=== PATIENT | female | born 1940 | race Caucasian/White ===

== ENCOUNTER 2018-09-18 06:06 | Day surgery (SDC) | payer OTHER, BC | END 2018-09-18 10:55 | disposition home or self-care (01) | LOC: FASU 06:06 ==

== ENCOUNTER 2020-08-27 08:55 | Inpatient (IN) | payer OTHER, BC ==
[2020-08-27 09:46] LABS: BASO % 0.8 % (0-2.0); EOS % 0.9 % (0-4.5); HEMATOCRIT 41.6 % (32.4-45.2); HEMOGLOBIN 13.7 GM/dl (10.7-15.3); LYMPH % 19.5 % (8-40); MCH 29.5 pg (25.7-33.7); MEAN CELL VOLUME 89.6 fl (80-96); MEAN PLT VOLUME 9.9 fl (7.5-11.1); MONO % 5.6 % (3.8-10.2); NEUT % 73.2 % (42.8-82.8); PLATELET COUNT 236 K/MM3 (134-434); RBC 4.64 M/mm3 (3.60-5.2); RDW 13.6 % (11.6-15.6); WHITE BLOOD COUNT 6.6 K/mm3 (4.0-10.8)
[2020-08-27] MEDS ORDERED: ONDANSETRON 4 MG/2 ML VIAL IVPUSH ONE (09:53)
[2020-08-27] MEDS ORDERED: ONDANSETRON 4 MG/2 ML VIAL ONE (09:53)
[2020-08-27] MEDS ORDERED: SODIUM CHLORIDE 0.9% 500 ML INFUS.BAG IV ONE ×2 (09:58→10:55)
[2020-08-27 10:09] LABS: ALBUMIN 4.3 g/dl (3.4-5.0); BILIRUBIN,TOTAL 1.2 mg/dl (0.2-1); CALCIUM 9.4 mg/dl (8.5-10); CREATININE 0.7 mg/dl (0.55-1.3); MAGNESIUM 1.8 mg/dL (1.8-2.4); PHOSPHOROUS 1.8 mg/dl (2.5-4.9); TOT PROT 7.2 g/dl (6.4-8.2)
[2020-08-27] MEDS ORDERED: NAPH,MB-DB/K PH,MBDB POWDER PACKET PO ONE (10:15)
[2020-08-27 10:45] LABS: EPITHELIAL CELLS FEW /hpf
[2020-08-27] MEDS ORDERED: METOCLOPRAMIDE HCL INJECTION 10 MG/2 ML VIAL IVPB ONE (11:13)
[2020-08-27 11:29] LABS: LIPASE 118 U/L (73-393)
[2020-08-27] MEDS ORDERED: METOCLOPRAMIDE HCL INJECTION 10 MG/2 ML VIAL ONE (11:31)
[2020-08-27 11:37] LABS: N-TERMINAL BNP 38.5 pg/ml (5-450)
[2020-08-27] MEDS ORDERED: PROCHLORPERAZINE INJECTION 10 MG/2 ML VIAL IVPB ONE (11:45)
[2020-08-27] MEDS: LOSARTAN POTASSIUM 25 MG TABLET PO SCH (13:37)
[2020-08-27 15:36] VITALS: BMI 22.4
[2020-08-27 16:42] LABS: PHOSPHOROUS 2.9 mg/dl (2.5-4.9)
[2020-08-28 07:41] LABS: BASO % 0.3 % (0-2.0); EOS % 0.5 % (0-4.5); HEMATOCRIT 34.6 % (32.4-45.2); HEMOGLOBIN 11.8 GM/dl (10.7-15.3); LYMPH % 11.9 % (8-40); MCH 30.1 pg (25.7-33.7); MEAN CELL VOLUME 88.4 fl (80-96); MEAN PLT VOLUME 9.7 fl (7.5-11.1); MONO % 6.5 % (3.8-10.2); NEUT % 80.8 % (42.8-82.8); PLATELET COUNT 216 K/MM3 (134-434); RBC 3.92 M/mm3 (3.60-5.2); RDW 13.1 % (11.6-15.6); WHITE BLOOD COUNT 9.8 K/mm3 (4.0-10.8)
[2020-08-28 07:49] LABS: ALBUMIN 3.6 g/dl (3.4-5.0); BILIRUBIN,TOTAL 0.9 mg/dl (0.2-1); CALCIUM 8.7 mg/dl (8.5-10); CREATININE 0.7 mg/dl (0.55-1.3); MAGNESIUM 1.8 mg/dL (1.8-2.4); PHOSPHOROUS 2.7 mg/dl (2.5-4.9)
[2020-08-28 08:47] LABS: EPITHELIAL CELLS FEW /hpf
[2020-08-28] MEDS: LOSARTAN POTASSIUM 25 MG TABLET PO SCH (09:22)
[2020-08-28] MEDS ORDERED: ONDANSETRON 4 MG/2 ML VIAL IVPUSH PRN (09:59)
[2020-08-28] MEDS: THIAMINE HCL 100 MG TABLET (FP) PO SCH (10:29)
[2020-08-28] MEDS: FOLIC ACID 1 MG TABLET (FP) PO SCH (10:29)
[2020-08-28] MEDS: SODIUM CHLORIDE 1,000 ML IV SCH (10:52)
[2020-08-28] MEDS: ASPIRIN COATED 81 MG TABLET.EC PO SCH (11:00)
[2020-08-28] MEDS: ENOXAPARIN NA (PORCINE) 40 MG/0.4 ML DISP.SYRIN SQ SCH (11:00)
[2020-08-28] MEDS: ATORVASTATIN CA 20 MG TABLET (FP) PO SCH (21:04)
[2020-08-29 08:04] LABS: BASO % 0.5 % (0-2.0); EOS % 0.8 % (0-4.5); HEMATOCRIT 34.7 % (32.4-45.2); HEMOGLOBIN 11.6 GM/dl (10.7-15.3); LYMPH % 15.3 % (8-40); MCHC 33.5 g/dl (32.0-36.0); MEAN CELL VOLUME 89.4 fl (80-96); MEAN PLT VOLUME 9.7 fl (7.5-11.1); MONO % 7.8 % (3.8-10.2); NEUT % 75.6 % (42.8-82.8); PLATELET COUNT 191 K/MM3 (134-434); RBC 3.88 M/mm3 (3.60-5.2); RDW 12.6 % (11.6-15.6); WHITE BLOOD COUNT 6.8 K/mm3 (4.0-10.8)
[2020-08-29 08:20] LABS: ALBUMIN 3.6 g/dl (3.4-5.0); BILIRUBIN,TOTAL 1.2 mg/dl (0.2-1); CALCIUM 8.9 mg/dl (8.5-10); CREATININE 0.7 mg/dl (0.55-1.3); MAGNESIUM 1.9 mg/dL (1.8-2.4); PHOSPHOROUS 2.8 mg/dl (2.5-4.9)
[2020-08-29 09:51] LABS: BILIRUBIN,DIRECT 0.2 mg/dL (0.0-0.2)
[2020-08-29] MEDS: ENOXAPARIN NA (PORCINE) 40 MG/0.4 ML DISP.SYRIN SQ SCH (09:54)
[2020-08-29] MEDS: LOSARTAN POTASSIUM 25 MG TABLET PO SCH (09:54)
[2020-08-29] MEDS: THIAMINE HCL 100 MG TABLET (FP) PO SCH (09:54)
[2020-08-29] MEDS: SODIUM CHLORIDE 1,000 ML IV SCH (09:54)
[2020-08-29] MEDS: FOLIC ACID 1 MG TABLET (FP) PO SCH (09:54)
[2020-08-29] MEDS: ASPIRIN COATED 81 MG TABLET.EC PO SCH (09:54)
[2020-08-29 10:15] LABS: CHOLESTEROL 142 mg/dl (50-200); HDL CHOLESTEROL 59 mg/dl (40-60); LDL CHOLESTEROL (ONLY DFH) 71 mg/dl (5-100); TRIGLYCERIDES 60 mg/dl (0-150)
[2020-08-29] MEDS: CHOLECALCIFEROL (VIT D3) 1,000 UNIT (25 MCG) TABLET PO SCH (15:40)
[2020-08-29] MEDS: ATORVASTATIN CA 20 MG TABLET (FP) PO SCH (21:04)
[2020-08-30 05:48] VITALS: TEMP 98.4
[2020-08-30 09:19] VITALS: BP 140/58; PULSE 73
[2020-08-30] MEDS: THIAMINE HCL 100 MG TABLET (FP) PO SCH (09:19)
[2020-08-30] MEDS: LOSARTAN POTASSIUM 25 MG TABLET PO SCH (09:19)
[2020-08-30] MEDS: FOLIC ACID 1 MG TABLET (FP) PO SCH (09:19)
[2020-08-30] MEDS: CHOLECALCIFEROL (VIT D3) 1,000 UNIT (25 MCG) TABLET PO SCH (09:20)
[2020-08-30] MEDS: ASPIRIN COATED 81 MG TABLET.EC PO SCH (09:20)
[2020-08-30] MEDS: ENOXAPARIN NA (PORCINE) 40 MG/0.4 ML DISP.SYRIN SQ SCH (09:20)
== END 2020-08-30 13:00 | disposition home or self-care (01) | DRG 149 ==
LOC: FER 08:55 → FM/S 12:34 → INTOOBSV 14:41 → UNDOADMOB 14:41 → FM/S 14:41 → OBSVTOIN 08-28 18:49
PROVIDERS: ADMIT Internal Medicine; ATTEND Nurse Practitioner Family
DX: H81.10 Benign paroxysmal vertigo, unspecified ear (principal); I10 Essential (primary) hypertension; E78.5 Hyperlipidemia, unspecified; E86.0 Dehydration; E83.39 Other disorders of phosphorus metabolism; R55 Syncope and collapse; R26.89 Other abnormalities of gait and mobility; R82.4 Acetonuria; I72.0 Aneurysm of carotid artery
CPT/HCPCS: 36415; 70450-TC; 70544-TC; 70551-TC; 71045-TC-FY; 74176-TC; 80053; 80061; 81003; 81015; 82010; 82248; 82306; 82550; 82607; 83036; 83690; 83735; 83880; 84100; 84443; 84484; 85025; 87086; 93005; 97116-GP; 97162-GP; 99285-25; C9803; G0378; U0003; U0005

== ENCOUNTER → 2023-01-25 | Day surgery (SDC) | payer OTHER, BC | END | disposition home or self-care (01) | LOC: JRADUS-SUR 12:51 → JMAMMO-SUR 12:51 | PROVIDERS: ATTEND Internal Medicine Geriatric Medicine | PROC: 0H9V3ZX Drainage of Bilateral Breast, Percutaneous Approach, Diagnostic (ICD-10-PCS; principal; 2023-01-25) | DX: C50.212 Malignant neoplasm of upper-inner quadrant of left female breast (principal); D24.1 Benign neoplasm of right breast | CPT/HCPCS: 19083; 19084; 77066-TC; 87899; A4648 ==